=== PATIENT | female | born 1960 | race Caucasian/White ===

== ENCOUNTER 2020-04-19 12:23 | Emergency (ER) | payer OTHER, SELFPAY ==
--- NOTE | 2020-04-19 12:29 | ED.URI ---
HPI - URI/Sore Throat General Chief Complaint: Upper Respiratory Infection Stated Complaint: sore throat/headache/diarrhea/fever Time Seen by Provider: 04/19/20 12:29 Source: patient and RN notes reviewed History of Present Illness HPI Narrative: Patient is a 59-year-old female who presents the urgent care with complaints of headache, diarrhea, cough, body aches, sore throat. Patient states her symptoms started about 4 days ago, maybe longer. Patient states that she does get Covid swab while working for [employer] and today was her day to be swabbed. Patient states that she did not go to work. States that her last swab was on April 06 and she was told on the that her swab was negative. Patient states that her fever was 98.9 Fahrenheit . Reports that she is also had chills. Patient reports that her diarrhea was 2 loose stools yesterday which is now improved. Patient currently denies of any abdominal pain, nausea, vomiting. Denies of any shortness of breath or chest pain. Patient denies taking anything [id number] for her symptoms. Denies of any known exposure to strep, Covid, influenza. No other acute complaints. No acute distress noted. Patient aware of the plan of care. Some parts of this dictation were generated by voice recognition software and may contain typographical and/or grammatical inaccuracies. Related Data Home Medications Medication Instructions Recorded Confirmed albuterol sulfate INHALATION 04/19/20 budesonide-formoterol INHALATION 04/19/20 ergocalciferol (vitamin D2) 04/19/20 famotidine 04/19/20 fluticasone propion-salmeterol INHALATION 04/19/20 [Advair Diskus] Allergies Allergy/AdvReac Type Severity Reaction Status Date / Time hydrochlorothiazide Allergy Mild Verified 08/05/16 10:39 Penicillins Allergy Mild Verified 08/05/16 10:39 Sulfa (Sulfonamide Allergy Mild Verified 08/05/16 10:39 Antibiotics) triamterene Allergy Mild Verified 08/05/16 10:39 OXYCODONE? Allergy Mild Uncoded 08/05/16 10:39 Review of Systems Review of Systems: Narrative: CONSTITUTIONAL: Reports of chills EYES: Denies visual changes, redness, or discharge. ENT: Reports of sore throat, otalgia CARDIOVASCULAR: Denies chest pain, palpitations, or edema. RESPIRATORY: Reports a mild nonproductive cough without dyspnea GASTROINTESTINAL: Reports of 2 loose stools without abdominal pain, nausea, vomiting GENITOURINARY: Denies dysuria or hematuria. SKIN: Denies rash or itching. MUSCULOSKELETAL: Reports of body aches NEUROLOGIC: Reports of intermittent headaches All other systems reviewed are negative, except as documented in HPI. PMFSH Comments At the time of my signature, I reviewed and agree with the nursing past medical, surgical, social, and family history. There is no relevant family history pertinent to the patient complaint. Exam Narrative: Exam Narrative: GENERAL: This is a well-nourished, well-developed patient, in no apparent distress. Appears slightly fatigued HEAD: normocephalic, atraumatic. EYES: PERRL. Sclera clear/white. Vision is grossly intact. EARS: External ears normal, auditory canals clear and without drainage, TMs normal without perforation. Hearing grossly intact. NOSE: External nose normal with no obvious nasal discharge, nares without redness, no rhinorrhea. THROAT: Mucous membranes moist, posterior pharynx clear. Mild postnasal drainage NECK: Neck supple CARDIOVASCULAR: Regular rate and rhythm without murmurs, gallops, or rubs. RESPIRATORY: Clear to auscultation. Breath sounds equal bilaterally. No wheezes, rales, or rhonchi. GASTROINTESTINAL: Abdomen soft, non-tender, nondistended. Bowel sounds are active. SKIN: warm, intact with no suspicious lesions or rash, good texture and turgor. NEURO: awake, alert, and oriented to person, place and time. There were no obvious focal neurologic abnormalities. EXTREMITIES: No clubbing, cyanosis, or edema. Course Vital Signs Vital signs:
[2020-04-19 13:03] VITALS: BP 176/83; PULSE 67; RESP 16; TEMP 36.1; O2SAT 99
== END 2020-04-19 12:58 | disposition home or self-care (01) ==
PROVIDERS: Emergency Provider Nurse Practitioner Family; PCP Emergency Medicine
DX: J06.9 Acute upper respiratory infection, unspecified (principal); Z20.822 Contact with and (suspected) exposure to COVID-19; J45.909 Unspecified asthma, uncomplicated
CPT/HCPCS: 87081; 87426; 87804; 87880; 99213; C9803; G0463

== ENCOUNTER 2021-09-08 15:49 | Emergency (ER) | payer OTHER, SELFPAY ==
--- NOTE | ~2021-09-08 | XR_ITS ---
EXAMINATION: XR chest 1V portable Exam Date/Time: 09/08/2021 17:15 CDT HISTORY: covid+,COUGH Comparison: 04/07/2017. RESULT: Lines, tubes, and devices: None. Lungs and pleura: Clear. Cardiomediastinal silhouette: Stable cardiomediastinal silhouette. Other: No acute osseous or upper abdominal finding. IMPRESSION: No acute cardiopulmonary process. Reviewed, dictated and finalized at location K.
[2021-09-08 15:58] VITALS: BP 173/98; PULSE 96; RESP 20; TEMP 37.6; O2SAT 98
[2021-09-08] MEDS: BENZONATATE 100 MG CAPSULE PO (18:07)
--- NOTE | 2021-09-08 19:12 | ED.GENADULT ---
HPI - General Adult General Chief complaint: Upper Respiratory Infection <KACEY Velazquez Last Filed: 09/09/21 01:20> Stated complaint: COVID + 09/07/2021 <KACEY Velazquez Last Filed: 09/09/21 01:20> Time Seen by Provider: 09/08/21 17:20 <KACEY Velazquez Last Filed: 09/09/21 01:20> History of Present Illness HPI narrative: Patient Is a 60-year-old female with a history of asthma here for evaluation of cough. Patient states that she has been feeling generally unwell for the past 3 days with sinus congestion, mild sore throat, productive cough, and lung pain . Patient took a home COVID test which turned out to be positive. Denies chest pain, shortness of breath, leg swelling, abdominal pain, nausea, diaphoresis or fevers. <KACEY Velazquez Last Filed: 09/09/21 01:20> Related Data Home medications: Home Medications Medication Instructions Recorded Confirmed albuterol sulfate 90 mcg/actuation inhalation 04/19/20 aerosol inhaler budesonide-formoterol HFA 160 inhalation 04/19/20 mcg-4.5 mcg/actuation aerosol inhaler ergocalciferol (vitamin D2) 1,250 04/19/20 mcg (50,000 unit) capsule famotidine 20 mg tablet 04/19/20 fluticasone 100 mcg-salmeterol 50 inhalation 04/19/20 mcg/dose blistr powdr for inhalation (Advair Diskus) <KACEY Velazquez Last Filed: 09/09/21 01:20> Allergies/adverse reactions: Allergies Allergy/AdvReac Type Severity Reaction Status Date / Time hydrochlorothiazide Allergy Mild Verified 08/05/16 10:39 Penicillins Allergy Mild Verified 08/05/16 10:39 Sulfa (Sulfonamide Allergy Mild Verified 08/05/16 10:39 Antibiotics) triamterene Allergy Mild Verified 08/05/16 10:39 OXYCODONE? Allergy Mild Uncoded 08/05/16 10:39 <KACEY Velazquez Last Filed: 09/09/21 01:20> Review of Systems Review of Systems: Gen: Denies fevers or chills Eyes: Denies eye pain or visual change ENT: Reports congestion Respiratory: Reports cough CV: Denies chest pain or palpitations GI: Denies abdominal pain nausea, emesis or diarrhea : denies burning, urgency, frequency or hematuria Musculoskeletal: Denies back pain or muscle pain Neuro: Denies numbness, tingling, weakness or focal weakness Skin: Denies rash Except as documented, all other systems reviewed and negative <Malgorzata Eisenberg PA-C - Last Filed: 09/09/21 01:20> Exam Narrative: APPEARANCE: Well appearing, no pain in distress, well-nourished. Head: Normocephalic and atraumatic. EYES: PERRLA/EOMI, conjunctivae clear NOSE: No nasal drainage EARS: External ear normal in appearance THROAT: Oropharynx is clear. Mucous membranes are moist. NECK: Supple. No adenopathy, no masses. RESPIRATORY: Airway patent, respirations nonlabored. Clear to auscultation bilaterally, no rales, rhonchi, wheezing. CARDIOVASCULAR: Regular rate and rhythm without murmurs, rubs, or gallops. ABDOMINAL: Normoactive bowel sounds. Soft, nontender, nondistended. No rebound tenderness or guarding. MUSCULOSKELETAL: Extremities are warm and well-perfused. Moves all extremities well. No edema. NEURO: Normal speech. No focal neurologic deficits. SKIN: Skin is warm and dry. No rashes. PSYCHIATRIC: Normal affect/mood.. <Malgorzata Eisenberg PA-C - Last Filed: 09/09/21 01:20> Course WINDOW INSTALLER/PA Physician Supervision For this patient encounter, I reviewed the WINDOW INSTALLER or PA documentation, treatment plan, and medical decision making <Jerry Lugo MD - Last Filed: 09/09/21 13:52> Vital Signs Vital signs: Vital Signs Temperature 99.6 F 09/08/21 15:58 Pulse Rate 96 09/08/21 15:58 Respiratory Rate 20 09/08/21 15:58 Blood Pressure 173/98 H 09/08/21 15:58 Pulse Oximetry 98 09/08/21 15:58 Oxygen Delivery Room Air 09/08/21 15:58 Temperature 99.6 F 09/08/21 15:58 Pulse Rate 96 09/08/21 15:58 Respiratory Rate 20 09/08
== END 2021-09-08 18:47 | disposition home or self-care (01) ==
PROVIDERS: Emergency Provider Emergency Medicine; PCP Emergency Medicine
DX: U07.1 COVID-19 (principal)
CPT/HCPCS: 71045; 99283; A9270

== ENCOUNTER 2021-09-28 12:07 | Outpatient (CLI) | payer OTHER, SELFPAY ==
--- NOTE | ~2021-09-28 | XR_ITS ---
EXAMINATION: XR chest 2V 09/28/2021 12:25 INDICATION: Acute cough. Covid 3 weeks ago. PROCEDURE: 2 view chest COMPARISON: 01/09/2022 FINDINGS: The lungs are clear. The cardiomediastinal silhouette is within normal limits. There are no pleural effusions. There is no pneumothorax suspected. IMPRESSION: 1: NO ACUTE CARDIOPULMONARY DISEASE. Reviewed, dictated and finalized at location A.
== END 2021-09-28 12:08 | disposition home or self-care (01) ==
PROVIDERS: PCP Emergency Medicine; Visit Provider Emergency Medicine
DX: R05.1 Acute cough (principal)
CPT/HCPCS: 71046

== ENCOUNTER 2022-01-26 09:45 | Emergency (ER) | payer OTHER, SELFPAY ==
--- NOTE | ~2022-01-26 | XR_ITS ---
EXAMINATION: XR chest 2V 01/26/2022 10:15 INDICATION: Cough and congestion. Asthma. PROCEDURE: 2 view chest COMPARISON: 09/28/2021 FINDINGS: The lungs are clear. The cardiomediastinal silhouette is within normal limits. There are no pleural effusions. There is no pneumothorax suspected. IMPRESSION: 1: NO ACUTE CARDIOPULMONARY DISEASE. Reviewed, dictated and finalized at location A. 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
--- NOTE | 2022-01-26 09:47 | ED.URI ---
HPI - URI/Sore Throat General Chief Complaint: Upper Respiratory Infection Stated Complaint: Cold causing chest tightness Time Seen by Provider: 01/26/22 09:47 Source: patient and RN notes reviewed History of Present Illness HPI Narrative: patient is a 61-year-old female who presents to urgent care with complaints of nasal congestion for 3 weeks that developed into chest tightness and cough last night. Patient also reports of fatigue. States that she is having some chest discomfort with deep breathing. Patient does have a history of asthma and has been using her inhalers and Tylenol as needed. Patient denies any known fevers. Denies any known exposures. No other acute complaints. No acute distress noted. Patient is not dyspneic. Aware of the plan of care. Some parts of this dictation were generated by voice recognition software and may contain typographical and/or grammatical inaccuracies. Related Data Home Medications Medication Instructions Recorded Confirmed albuterol sulfate 90 mcg/actuation inhalation 04/19/20 aerosol inhaler budesonide-formoterol HFA 160 inhalation 04/19/20 mcg-4.5 mcg/actuation aerosol inhaler ergocalciferol (vitamin D2) 1,250 04/19/20 mcg (50,000 unit) capsule famotidine 20 mg tablet 04/19/20 fluticasone 100 mcg-salmeterol 50 inhalation 04/19/20 mcg/dose blistr powdr for inhalation (Advair Diskus) Allergies Allergy/AdvReac Type Severity Reaction Status Date / Time hydrochlorothiazide Allergy Mild Verified 08/05/16 10:39 Penicillins Allergy Mild Verified 08/05/16 10:39 Sulfa (Sulfonamide Allergy Mild Verified 08/05/16 10:39 Antibiotics) triamterene Allergy Mild Verified 08/05/16 10:39 OXYCODONE? Allergy Mild Uncoded 08/05/16 10:39 Review of Systems Review of Systems: CONSTITUTIONAL: reports of chills and fatigue EYES: Denies visual changes, redness, or discharge. ENT: Denies rhinorrhea, congestion, sore throat, or otalgia. reports of nasal drainage CARDIOVASCULAR: Denies chest pain, palpitations, or edema. RESPIRATORY: Reports of cough, chest tightness and dyspnea GASTROINTESTINAL: Denies abdominal pain, nausea, vomiting, or diarrhea. GENITOURINARY: Denies dysuria or hematuria. SKIN: Denies rash or itching. MUSCULOSKELETAL: Denies back pain, joint pain, or myalgia. NEUROLOGIC: Denies headache, numbness, or weakness. All other systems reviewed are negative, except as documented in HPI. PMFSH Comments At the time of my signature, I reviewed and agree with the nursing past medical, surgical, social, and family history. There is no relevant family history pertinent to the patient complaint. Exam Narrative: GENERAL: This is a well-nourished, well-developed patient, in no apparent distress. HEAD: normocephalic, atraumatic. EYES: PERRL. Sclera clear/white. Vision is grossly intact. EARS: External ears normal, auditory canals clear and without drainage, TMs normal without perforation. Hearing grossly intact. NOSE: External nose normal with no obvious nasal discharge, nares without redness, no rhinorrhea. THROAT: Mucous membranes moist, posterior pharynx clear. moderate postnasal drainage NECK: Neck supple, non-tender without lymphadenopathy CARDIOVASCULAR: Regular rate and rhythm RESPIRATORY: Clear to auscultation. Breath sounds equal bilaterally. No wheezes, rales, or rhonchi. SKIN: warm, intact with no suspicious lesions or rash, good texture and turgor. NEURO: awake, alert, and oriented to person, place and time. There were no obvious focal neurologic abnormalities. EXTREMITIES: No clubbing, cyanosis, or edema. Course Course Level of Care: Express Care Visit Vital Signs Vital signs: Vital Signs Temperature 99.4 F 01/26/22 09:50 Pulse Rate 81 01/26/22 09:50 Respiratory Rate 20 01/26/22 09:50 Blood Pressure 124/71 01/26/22 09:50 Pulse Oximetry 98 01/26/22 09:50 Oxygen Delivery Room Air 01/26/22 09:50 Temperature 9
[2022-01-26 09:50] VITALS: BP 124/71; PULSE 81; RESP 20; TEMP 37.4; O2SAT 98
== END 2022-01-26 10:39 | disposition home or self-care (01) ==
PROVIDERS: Emergency Provider Nurse Practitioner Family; PCP Emergency Medicine
DX: J06.9 Acute upper respiratory infection, unspecified (principal); J45.909 Unspecified asthma, uncomplicated
CPT/HCPCS: 71046; 99213; G0463

== ENCOUNTER 2022-05-16 15:18 | Outpatient (CLI) | payer OTHER, SELFPAY ==
--- NOTE | ~2022-05-16 | XR_ITS ---
XR chest 2V DATE: 05/16/2022 15:43 INDICATION: Left upper posterior chest pain, cough, burning TECHNIQUE: PA and lateral views COMPARISON: 01/26/2022 2 view chest FINDINGS: Heart size is within normal range. No hilar or mediastinal enlargement. No pulmonary infilt rate or consolidation, pleural effusion or pulmonary vascular congestion or pneumothorax. Mild degenerative spurring of the thoracic spine. Osteopenia. IMPRESSION: No active cardiopulmonary disease Reviewed, dictated and finalized at location A.
== END 2022-05-16 15:19 | disposition home or self-care (01) ==
LOC: ANHIMG 15:29
PROVIDERS: PCP Emergency Medicine; Visit Provider Emergency Medicine
DX: R05.9 Cough, unspecified (principal)
CPT/HCPCS: 71046

== ENCOUNTER 2022-05-16 16:49 | Emergency (ER) | payer OTHER, SELFPAY ==
--- NOTE | 2022-05-16 16:53 | ED.FEMALEGU ---
HPI - Female Genitourinary General Chief complaint: Urogenital-Female Stated complaint: chills,headache, bladder infection Time Seen by Provider: 05/16/22 16:53 Source: patient and RN notes reviewed History of Present Illness HPI Narrative: Patient is a 61-year-old female presents to urgent care with complaints of headache, chills and a possible UTI due to dysuria, frequency and urgency. Patient states that the urgency, dysuria and frequency have been ongoing for approximately 1 week without nausea, vomiting, fever or abdominal discomfort. Patient states she used to have a history of cystitis which resolved after a procedure by her urologist. Patient states it has been many years ago and the symptom does seem to be consistent. Patient states that the headache and chills started yesterday. Patient has not used anything [id number] for her symptoms. No other acute complaints. No acute distress noted. Patient aware of the plan of care. Some parts of this dictation were generated by voice recognition software and may contain typographical and/or grammatical inaccuracies. Related Data Home Medications Medication Instructions Recorded Confirmed albuterol sulfate 90 mcg/actuation 90 mcg inhalation Q4H PRN 04/19/20 aerosol inhaler Shortness Of Breath budesonide-formoterol HFA 160 2 puff inhalation BID 04/19/20 mcg-4.5 mcg/actuation aerosol inhaler famotidine 20 mg tablet 20 mg PO DAILY 04/19/20 Allergies Allergy/AdvReac Type Severity Reaction Status Date / Time hydrochlorothiazide Allergy Mild Blister Verified 05/16/22 17:14 Penicillins Allergy Mild Rash Verified 05/16/22 17:14 Sulfa (Sulfonamide Allergy Mild Rash Verified 05/16/22 17:14 Antibiotics) triamterene Allergy Mild Rash Verified 05/16/22 17:14 OXYCODONE? Allergy Mild Rash Uncoded 05/16/22 17:14 Review of Systems Review of Systems: CONSTITUTIONAL: Reports of chills EYES: Denies visual changes, redness, or discharge. ENT: Denies rhinorrhea, congestion, sore throat, or otalgia. CARDIOVASCULAR: Denies chest pain, palpitations, or edema. RESPIRATORY: Denies cough or dyspnea. GASTROINTESTINAL: Denies abdominal pain, nausea, vomiting, or diarrhea. GENITOURINARY: Reports of dysuria, urgency and frequency SKIN: Denies rash or itching. MUSCULOSKELETAL: Denies back pain, joint pain. Reports body aches NEUROLOGIC: Reports of headache All other systems reviewed are negative, except as documented in HPI. PMFSH Comments At the time of my signature, I reviewed and agree with the nursing past medical, surgical, social, and family history. There is no relevant family history pertinent to the patient complaint. Exam Narrative: GENERAL: This is a well-nourished, well-developed patient, in no apparent distress. HEAD: normocephalic, atraumatic. EYES: PERRL. Sclera clear/white. Vision is grossly intact. EARS: External ears normal NOSE: External nose normal with no obvious nasal discharge, nares without redness, no rhinorrhea. THROAT: Mucous membranes moist NECK: Neck supple RESPIRATORY: Clear to auscultation. Breath sounds equal bilaterally. No wheezes, rales, or rhonchi. GASTROINTESTINAL: Abdomen soft, mild suprapubic tenderness, nondistended. Bowel sounds are active. SKIN: warm, intact with no suspicious lesions or rash, good texture and turgor. NEURO: awake, alert, and oriented to person, place and time. There were no obvious focal neurologic abnormalities. EXTREMITIES: No clubbing, cyanosis, or edema. BACK: Mild left CVA tenderness Course Course Level of Care: Express Care Visit Vital Signs Vital signs: Vital Signs Temperature 97.9 F 05/16/22 17:05 Pulse Rate 66 05/16/22 17:05 Respiratory Rate 16 05/16/22 17:05 Blood Pressure 163/80 H 05/16/22 17:05 Pulse Oximetry 100 05/16/22 17:05 Temperature 97.9 F 05/16/22 17:05 Pulse Rate 66 05/16/22 17:05 Respiratory Rate 16 05/16/22 17:05 Blood Pressure 163/80 H 05/16/22 1
[2022-05-16 17:05] VITALS: BP 163/80; PULSE 66; RESP 16; TEMP 36.6; O2SAT 100
== END 2022-05-16 17:29 | disposition home or self-care (01) ==
PROVIDERS: Emergency Provider Nurse Practitioner Family; PCP Emergency Medicine
DX: N30.90 Cystitis, unspecified without hematuria (principal)
CPT/HCPCS: 81003; 87086; 99213; G0463

== ENCOUNTER 2022-07-01 07:34 | Outpatient (CLI) | payer OTHER, SELFPAY ==
--- NOTE | ~2022-07-01 | US_ITS ---
US abdomen complete EXAMINATION: US Abdomen Complete INDICATION: Liver disease PROCEDURE: Realtime High Resolution abdomen ultrasound. COMPARISON: No prior studies for comparison FINDINGS: Gallbladder within normal limits. No gallstones, pericholecystic fluid, gallbladder wall t hickening or biliary dilatation. Common bile duct measures 3 mm. Liver echotexture within normal limits without focal mass. Pancreas within normal limits. Pancreati c tail is obscured by bowel gas. Spleen is unremarkeable. Renal echotexture is within normal limits bilaterally without hydronephrosis, contour deforming mass or renal stone. Right kidney measures 10 c m. Left kidney measures 9.9 cm. Visualized aspects of the aorta and IVC are within normal limits. Portal vein is patent. No sonograph ic Pelayo's sign indicated by the technologist. IMPRESSION: 1: Normal abdominal ultrasound. Reviewed, dictated and finalized at location B.
--- NOTE | ~2022-07-01 | US_ITS ---
EXAMINATION: US thyroid DATE: 07/01/2022 08:28 INDICATION: Thyroid nodule. TECHNIQUE: Multiple ultrasound images of the thyroid were obtained. COMPARISON: None. FINDINGS: The right thyroid lobe measures 5.3 x 2.1 x 2.0 cm. The left thyroid lobe measures 5.7 x 2.7 x 2.8 c m. In the left thyroid lobe, there is a 3.7 cm solid, hypoechoic, wider than tall nodule with smooth margin without echogenic foci (TI-RADS TR4). In the left thyroid lobe, there is an 8 mm solid, hypoe choic, wider than tall nodule with smooth margin without echogenic foci (TR4). In the right thyroid l obe, there is a 1.5 cm solid, hypoechoic, wider than tall nodule with ill-defined margin without echo genic foci (TR4). In the right thyroid lobe, there is a 1.2 cm solid, hypoechoic, wider than tall nod ule with ill-defined margin without echogenic foci (TR4). There are other nodules in the thyroid eduardo uring up to 11 mm. IMPRESSION: 1. Multinodular goiter. Ultrasound-guided fine-needle aspiration of 2 nodules is recommended. Reviewed, dictated and finalized at location A. IMPRESSION: 1. Multinodular goiter. Ultrasound-guided fine-needle aspiration of 2 nodules i s recommended.
== END 2022-07-01 07:35 ==
PROVIDERS: PCP Emergency Medicine; Visit Provider Emergency Medicine
DX: E04.2 Nontoxic multinodular goiter (principal)
CPT/HCPCS: 76536; 76700

== ENCOUNTER 2022-07-09 15:22 | Outpatient (CLI) | payer OTHER, SELFPAY ==
--- NOTE | ~2022-07-09 | CT_ITS ---
EXAMINATION: CT sinus wo con DATE: 07/09/2022 15:37 INDICATION: Chronic sinusitis TECHNIQUE: Computed tomography (CT) of the paranasal sinuses was performed without intravenous contra st. The dose-length product was 255.24 mGy-cm. Iterative reconstruction technique was employed. COMPARISON: None FINDINGS: There is rightward nasal septal motion. Ostiomeatal units are patent. No significant mucosa l thickening. No air-fluid levels. No mucoperiosteal reaction. Mastoids are pneumatized. IMPRESSION: 1. No significant sinus disease. Reviewed, dictated and finalized at location L.
== END 2022-07-09 15:23 ==
PROVIDERS: PCP Emergency Medicine; Visit Provider Emergency Medicine
DX: J32.9 Chronic sinusitis, unspecified (principal)
CPT/HCPCS: 70486

== ENCOUNTER 2022-09-03 10:03 | Outpatient (CLI) | payer OTHER, SELFPAY ==
--- NOTE | ~2022-09-03 | US_ITS ---
EXAMINATION: US FNA additional, US FNA w image guidance DATE: 09/03/2022 11:15 (accession [id number]), 09/03/2022 11:17 (accession [id number]) INDICATION: Bilateral thyroid nodules TECHNIQUE: A time-out was performed to verify the patient's name, date of , and procedure to be performed . The procedure and its benefits and risks were discussed with the patient. Risks specifically discus sed included bleeding and infection. The patient understood the risks and agreed to proceed. The neck was prepped and draped in the usual sterile manner. Attention was first turned to the left thyroid n odule. 4 mL 1% lidocaine was used for local anesthesia. 6 passes were made with a 25G needle into th e lesion. Appropriate needle location was documented with continuous sonographic guidance. Attention was then turned to the right thyroid nodule. An additional 4 mm 1% lidocaine was used for local anes thesia. 6 passes were made with a 25G needle into the lesion. Appropriate needle location was documen leslye with continuous sonographic guidance. Sterile bandages were applied. There were no immediate com plications. FINDINGS: Grayscale ultrasound images demonstrate biopsy needles advanced into a 3.6 cm TI RADS 4 nodule in the left thyroid lobe. Subsequent images demonstrate biopsy needles advanced into the 1.4 cm TI RADS 4 r ight thyroid nodule of concern (measured as 1.5 cm on the prior study.) IMPRESSION: 1. Successful ultrasound-guided fine needle aspiration of a 3.6 cm TI RADS 4 nodule in the left thyr oid. 2. Successful ultrasound-guided fine-needle aspiration of a 1.4 cm TI RADS 4 right thyroid nodule.. Reviewed, dictated and finalized at location A. IMPRESSION: 1. Successful ultrasound-guided fine needle aspiration of a 3.6 cm TI RADS 4 n odule in the left thyroid. 2. Successful ultrasound-guided fine-needle aspiration of a 1.4 cm TI RADS 4 ri ght thyroid nodule..
== END 2022-09-03 10:04 | disposition home or self-care (01) ==
PROVIDERS: PCP Emergency Medicine; Visit Provider Emergency Medicine
DX: E04.1 Nontoxic single thyroid nodule (principal)
CPT/HCPCS: 10005; 10006; 88173; 88305